=== PATIENT | male | born 1955 | race Hispanic/Latino ===

== ENCOUNTER 2019-01-10 14:44 | Emergency (ER) | payer OTHER ==
[2019-01-10] MEDS ORDERED: Ketorolac Tromethamine 30 MG/ML VIAL ONE (16:32)
== END 2019-01-10 16:25 | disposition home or self-care (01) ==
LOC: EEVIPCON 14:44 → ERS 14:44
DX: K64.4 Residual hemorrhoidal skin tags (principal)
CPT/HCPCS: 96372; 99282; J1885